=== PATIENT | male | born 2000 | race Caucasian/White ===

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

== ENCOUNTER 2022-01-06 20:36 | Emergency (ER) | payer OTHER ==
[~2022-01-06] VITALS: Ht 172.7 cm; Wt 72.7 kg
[~2022-01-06 20:36] MED LIST: FLEXERIL 1010 MG/TAB PO
[2022-01-06 21:44] LABS: COLLECTION METHOD CLEAN CATCH
[2022-01-06 21:51] LABS: PH 5.5 (5.0-8.5); SQUAMOUS EPITHELIAL None Seen /hpf (0-10); URINE APPEARANCE Clear (CLEAR/HAZY); URINE BACTERIA None Seen /hpf (NONE SEEN); URINE BLOOD Negative (NEGATIVE); URINE COLOR Yellow (YELLOW); URINE GLUCOSE Negative (NEGATIVE); URINE KETONE Negative (NEGATIVE); URINE NITRATE Negative (NEGATIVE); URINE PROTEIN(semi-quant) Negative (NEGATIVE); URINE RBC 0-2 /hpf (0-2); URINE UROBILINOGEN 0.2 E.U/dL (0.2-1.0)
[2022-01-06 21:52] LABS: HEMATOCRIT 46.9 % (36.0-47.0); HEMOGLOBIN 16.5 g/dl (12.5-16.1); MEAN CELL VOLUME 82 fl (80.0-95.0); MEAN CORPUSCULAR HEMOGLOBIN 29 pg (26-32); MEAN CORPUSCULAR HGB CONC 35 g/dl (33.0-37.0); MEAN PLATELET VOLUME 9.1 fl (7.4-10.4); PLATELET COUNT 237 K/mm3 (130-400); RED BLOOD COUNT 5.71 M/mm3 (4.20-5.60); REDCELL DISTRIBUTION WIDTH-CV 12.3 % (11.5-14.5)
[2022-01-06 22:04] LABS: MONOSCREEN NEGATIVE
[2022-01-06 22:07] LABS: ALBUMIN 4.1 gm/dL (3.5-5.0); BILIRUBIN,TOTAL 0.4 mg/dL (0.2-1.2); C-REACTIVE PROTEIN 13.29 mg/dL (0.00-0.50); CALCIUM 9.5 mg/dL (8.4-10.2); CREATININE, serum 0.87 mg/dL (0.72-1.25); POTASSIUM 3.6 mmol/L (3.5-4.5); TOTAL PROTEIN 8.1 gm/dL (6.2-8.1)
[2022-01-06] MEDS ORDERED: ZOFRAN ODT4 MG PO (22:13)
[2022-01-06 22:22] LABS: BAND 3 % (0-10); NEUTROPHILS 69 % (42.0-75.2); PLATELET ESTIMATE NORMAL (NORMAL)
[2022-01-06 22:23] LABS: LYMPHOCYTE 16 % (20.0-51.0)
[2022-01-06 22:43] VITALS: BP 117/62; PULSE 83; TEMP 98.9
== END 2022-01-06 22:43 | disposition home or self-care (01) ==
LOC: COL.ER 20:36
PROVIDERS: Family Medicine
DX: J10.1 Influenza due to other identified influenza virus with other respiratory manifestations (principal); Z20.822 Contact with and (suspected) exposure to COVID-19
CPT/HCPCS: J2405; J7120